=== PATIENT | male | born 1935 | race Caucasian/White ===

== ENCOUNTER 2016-06-13 13:02 | Emergency (ER) | payer MEDICARE ==
[2016-06-13] MEDS ORDERED: HYDROCODON-ACE1 EA16 PO (13:52)
[2016-06-13] MEDS ORDERED: DEMADEX20 M1 PO (13:55)
[2016-06-13] MEDS ORDERED: AMBIEN5 M1 PO (13:55)
[2016-06-13] MEDS ORDERED: XARELTO15 M1 PO (13:55)
[2016-06-13] MEDS ORDERED: KEFLEX500 M4 PO (13:55)
[2016-06-13] MEDS ORDERED: TENORMIN100 M1 PO (13:56)
[2016-06-13] MEDS ORDERED: GLUCOPHAGE1000 M1 PO (13:56)
[2016-06-13] MEDS ORDERED: PRINIVIL20 M1 PO (13:56)
[2016-06-13] MEDS ORDERED: ASPIRIN EC81 MG PO (14:00)
[2016-06-13] MEDS ORDERED: BISACODYL5 M1 PO (14:00)
[2016-06-13] MEDS ORDERED: SIMVASTATIN40 M1 PO (14:01)
[2016-06-13] MEDS ORDERED: MELATONIN5 M5 PO (14:01)
[2016-06-13 16:01] LABS: IMMATURE GRANULOCYTES ABSOLUTE 0.06 tho/cmm (0-0.03); IMMATURE GRANULOCYTES PERCENT 0.6 % (0-0.3); LYMPH % 10.2 % (20-45); MCH (MEAN CORPUSCULAR HGB) 31.3 pg (28.0-32.0); MCHC MEAN CORPUSCULAR HGB CONC 34.2 % (32.0-36.0); MCV (MEAN CELL VOLUME) 91.3 fl (82.0-96.0); MEAN PLATELET VOLUME 9.3 cmc (9.4-12.4); MONO % 9.7 % (0-12); NEUTROPHIL ABSOLUTE COUNT 7.9 tho/cmm (1.6-8.0); NEUTROPHIL-AUTOMATED 7.9 tho/cmm (1.6-8.0); NEUTROPHILS % 79.5 % (40-80); PLATELET COUNT 193 tho/cmm (150-450); RED BLOOD COUNT 4.16 mil/cmm (4.40-5.70); RED CELL DISTRIBUTION WIDTH 14.5 % (12.4-16.4)
[2016-06-13 16:21] LABS: ANION GAP 15 mmol/L (0-20); BLOOD UREA NITROGEN 54 mg/dl (6-24); CALCIUM 8.5 mg/dl (8.5-10.5); CARBON DIOXIDE-VENOUS 26 mmol/L (22-32); CHLORIDE 98 mmol/l (96-110); GLUCOSE 227 mg/dL (70-110); POTASSIUM 5.4 mmol/L (3.7-5.1); SODIUM 134 mmol/L (135-145); eGFR VALUE FOR BLACK 27 mL/Min
== END 2016-06-13 18:32 ==
LOC: EDMED 13:02
PROVIDERS: Emergency Medicine
DX: K59.00 Constipation, unspecified (principal); E11.22 Type 2 diabetes mellitus with diabetic chronic kidney disease; I12.9 Hypertensive chronic kidney disease with stage 1 through stage 4 chronic kidney disease, or unspecified chronic kidney disease; N18.9 Chronic kidney disease, unspecified; Z95.1 Presence of aortocoronary bypass graft; Z95.5 Presence of coronary angioplasty implant and graft; Z90.49 Acquired absence of other specified parts of digestive tract; Z98.890 Other specified postprocedural states; Z87.891 Personal history of nicotine dependence; Z79.82 Long term (current) use of aspirin; Z79.899 Other long term (current) drug therapy